=== PATIENT | male | born 2000 | race Two or more races ===

== ENCOUNTER 2022-02-07 11:40 | Emergency (ER) | payer SELFPAY ==
[~2022-02-07] VITALS: Ht 172.7 cm; Wt 68.0 kg
[2022-02-07 11:46] VITALS: BP 125/72
[2022-02-07 12:37] LABS: Basophils # (auto) 0 10 ^3/uL (0-0.2); Basophils % (auto) 0.7 % (0.0-2.0); Eosinophils # (auto) 0.5 10 ^3/uL (0-0.8); Eosinophils % (auto) 8.7 % (0.0-7.0); Hematocrit 49.5 % (41.0-53.0); Hemoglobin 17.4 g/dL (13.5-17.5); Lymphocytes # (auto) 1.5 10 ^3/uL (0.4-5.4); Lymphocytes % (auto) 24.1 % (10.0-50.0); Mean Corpuscular Hemoglobin 31.2 pg (28.0-32.0); Mean Corpuscular Hgb Conc. 35.1 g/dL (32.0-36.0); Mean Corpuscular Volume 88.8 fL (80.0-100.0); Monocytes # (auto) 0.3 10 ^3/uL (0-1.3); Monocytes % (auto) 5.5 % (0.0-12.0); Neutrophils # (auto) 3.7 10 ^3/uL (1.6-8.6); Nucleated Red Blood Cells % 0.2 %; Red Blood Cells 5.58 10^6/uL (4.5-5.90); Red Cell Distribution Width 11.6 % (11.8-14.3); White Blood Cell 6.2 10^3/uL (4.4-10.8)
[2022-02-07 13:04] LABS: BUN/Creatinine Ratio 11.1; Calcium 9.4 mg/dL (8.5-10.1); Potassium 4.1 mmol/L (3.5-5.1)
== END 2022-02-07 13:18 | disposition home or self-care (01) ==
LOC: ER 11:40
DX: R07.89 Other chest pain (principal); J45.909 Unspecified asthma, uncomplicated
CPT/HCPCS: 36415; 71045; 80048; 84484; 85025; 93005

== ENCOUNTER 2023-10-15 07:19 | Emergency (ER) | payer SELFPAY ==
[~2023-10-15] VITALS: Ht 172.7 cm; Wt 66.2 kg
[2023-10-15] MEDS ORDERED: METH4PAK PO (08:07)
[2023-10-15 08:14] VITALS: BP 124/80; PULSE 90; RESP 16; TEMP 97.9; O2SAT 98
== END 2023-10-15 08:20 | disposition home or self-care (01) ==
LOC: ER 07:19
DX: J45.909 Unspecified asthma, uncomplicated (principal); R51.9 Headache, unspecified; Z79.899 Other long term (current) drug therapy

== ENCOUNTER 2025-03-25 14:01 | Emergency (ER) | payer OTHER ==
[~2025-03-25 14:01] MED LIST: METH4PAK PO
== END 2025-03-25 15:59 | disposition left against medical advice (07) ==
LOC: ER 14:05
DX: T14.8XXA Other injury of unspecified body region, initial encounter (principal); Z53.21 Procedure and treatment not carried out due to patient leaving prior to being seen by health care provider; W54.0XXA Bitten by dog, initial encounter; Y93.89 Activity, other specified; Y92.89 Other specified places as the place of occurrence of the external cause; Y99.8 Other external cause status